=== PATIENT | male | born 1965 | race Caucasian/White ===

== ENCOUNTER 2022-01-29 09:06 | Emergency (ER) | payer MEDICAID ==
[~2022-01-29] VITALS: Ht 177.8 cm; Wt 90.9 kg
[2022-01-29 09:15] VITALS: BP 146/92
== END 2022-01-29 12:06 | disposition home or self-care (01) ==
LOC: EMS 09:14
DX: S09.90XA Unspecified injury of head, initial encounter (principal); Z15.89 Genetic susceptibility to other disease; X58.XXXA Exposure to other specified factors, initial encounter; Y93.89 Activity, other specified; Y92.89 Other specified places as the place of occurrence of the external cause; Y99.8 Other external cause status
CPT/HCPCS: 99281; Z7502

== ENCOUNTER 2022-04-26 12:36 | Emergency (ER) | payer BC, MEDICAID ==
[~2022-04-26] VITALS: Ht 177.8 cm; Wt 90.9 kg
[2022-04-26 15:15] VITALS: BP 124/71
[2022-04-26] MEDS ORDERED: CEPH-558 PO (15:47)
== END 2022-04-26 16:11 | disposition home or self-care (01) ==
LOC: EMS 13:12
DX: K12.2 Cellulitis and abscess of mouth (principal); Z98.890 Other specified postprocedural states
CPT/HCPCS: 99283; Z7502